=== PATIENT | male | born 1965 | race Caucasian/White ===

== ENCOUNTER → 2020-11-21 09:03 | Outpatient (BNVA) | payer OTHER, SELFPAY | PROVIDERS: Family Provider Nurse Practitioner Family; PCP Nurse Practitioner Family; Visit Provider Nurse Practitioner Family | DX: I10 Essential (primary) hypertension (principal); Z68.27 Body mass index [BMI] 27.0-27.9, adult | CPT/HCPCS: 80053; 80061; 84439; 84443 ==

== ENCOUNTER → 2021-04-11 11:19 | Outpatient (BNVA) | payer OTHER, SELFPAY | PROVIDERS: Family Provider Nurse Practitioner Family; PCP Nurse Practitioner Family; Visit Provider Family Medicine | DX: S50.11XA Contusion of right forearm, initial encounter (principal); M72.0 Palmar fascial fibromatosis [Dupuytren]; X58.XXXA Exposure to other specified factors, initial encounter | CPT/HCPCS: 73090 ==

== ENCOUNTER 2022-04-22 05:57 | Day surgery (SDC) | payer OTHER, SELFPAY ==
[2022-04-18 11:19] VITALS: BMI 27.3
[2022-04-22 06:24] VITALS: BP 137/99; PULSE 87; RESP 18; TEMP 36.4; O2SAT 95
[2022-04-22] MEDS: sodium chloride 0.9% 1,000 ML 30 ML IV (06:35)
--- NOTE | 2022-04-22 07:00 | ANES.PREANE2 ---
Documented by User: Susanne Colmenares CRNA 04/22/22 07:01 Pre-Anesthetic Assessment Height/Weight: Height 1.73 m Weight 81.647 kg Temp Pulse Resp BP Pulse Ox 97.5 F L 87 18 137/99 95 04/22/22 06:24 04/22/22 06:24 04/22/22 06:24 04/22/22 06:24 04/22/22 06:24 Preop Diagnosis: Screen Operation Date: 04/22/22 07:15 Proposed Procedures p Colonoscopy 60901,Z12.11(Not Applicable) - Janes Mcdowell MD Familial anesthetic complications: none Was Beta Nadya taken within 24 hours: N/A Was Clonidine taken within 24 hours: N/A Last intake: Intake Last Liquid Date 04/21/22 Last Liquid Time 22:00 Last Solid Date 04/20/22 Last Solid Time 00:00 Last Intake: 00:00 Social Alcohol (weekend) and Tobacco (chewing tobacco) Exam alert and oriented x 3 Airway Submandibular: within normal limits Cervical ROM: within normal limits Mallampati: Class II Dentition: full History/ROS No significant history except as noted CV/HEM Hypertension None reported Hepatic None reported GI None reported Metabolic None reported Musc/skel None reported Neuropsych None reported Anesthetic Plan ASA status: 2 Anesthesia: Anesthesia Evaluation and MAC Risk of > 500 ml blood loss (7ml/kg in children): No Medications/Allergies Home Medications Medication Instructions Recorded Confirmed Last Taken Type ascorbic acid (vitamin C) 1,000 mg 1,000 mg PO BID tab 11/02/19 04/22/22 04/20/22 History tablet lysine 1,000 mg tablet 2,000 mg PO QDAY tab 11/02/19 04/22/22 04/20/22 History varicella-zoster glycoE [id number] 0.5 ml IM ONCE #1 ea 03/26/22 03/26/22 Unknown Rx adj(PF) 50 mcg/0.5 mL IM susp, kit (Shingrix (PF)) amlodipine 10 mg tablet 10 mg PO DAILY 04/19/22 04/22/22 04/21/22 History Allergies Allergy/AdvReac Type Severity Reaction Status Date / Time No Known Allergies Allergy Verified 03/26/22 13:10 Current Medications Generic Name Dose Route Start Last Admin Trade Name Freq PRN Reason Stop Dose Admin Sodium Chloride 1,000 mls @ 30 mls/hr 04/22/22 06:30 04/22/22 06:35 Sodium Chloride 0.9% IV 30 mls/hr .Q24H DONTE Administration PFSH Anesthesia Medical History (Updated 03/26/22 @ 13:40 by Janes Mcdowell MD) Essential hypertension Social History (Updated 03/26/22 @ 13:15 by Deb Viera) Smoking and tobacco status: current every day smoker smokeless tobacco Smokeless tobacco user: chewing tobacco Smokeless tobacco details: 1 can a day Alcohol intake: current Alcohol intake frequency: holidays/special occasions only Additional social history: Uses chewing tobacco Data Anesthesia Cardiac Studies: No Data to Display
--- NOTE | 2022-04-22 07:14 | W.PM.OPSFHP ---
Same Day Surgery H&P Indication for Procedure/HPI DATE OF PROCEDURE: April 22, 2022 CHIEF COMPLAINT/INDICATIONFOR SURGICAL PROCEDURE: Screening PREOP DIAGNOSIS: Screen PLANNED PROCEDURE: Operation Date: 04/22/22 07:15 Proposed Procedures p Colonoscopy 93332,Z12.11(Not Applicable) - Janes Mcdowell MD Medications/Allergies* Home Medications Medication Instructions Recorded Confirmed Type ascorbic acid (vitamin C) 1,000 mg 1,000 mg PO BID tab 11/02/19 04/22/22 History tablet lysine 1,000 mg tablet 2,000 mg PO QDAY tab 11/02/19 04/22/22 History amlodipine 10 mg tablet 10 mg PO DAILY 04/19/22 04/22/22 History Allergies/Adverse Reactions Allergy/AdvReac Type Severity Reaction Status Date / Time No Known Allergies Allergy Verified 03/26/22 13:10 Current Medications: Generic Name Dose Route Start Last Admin Trade Name Freq PRN Reason Stop Dose Admin Sodium Chloride 1,000 mls @ 30 mls/hr 04/22/22 06:30 04/22/22 06:35 Sodium Chloride 0.9% IV 30 mls/hr .Q24H DONTE Administration Pertinent History/Comorbid Conditions* Medical History (Updated 03/26/22 @ 13:40 by Janes Mcdowell MD) Essential hypertension Social History Smoking and tobacco status: current every day smoker smokeless tobacco Smokeless tobacco user: chewing tobacco Smokeless tobacco details: 1 can a day Alcohol intake: current Alcohol intake frequency: holidays/special occasions only Additional social history: Uses chewing tobacco Pertinent Exam Findings alert, oriented x 3, clear to auscultation bilaterally, regular rate & rhythm, operative site marked and procedure specific exam findings Recommendations Surgery/Procedure today Coding Level of Care Code Acute Tobacco Prizer for Jelly Joy
[2022-04-22 08:04] VITALS: BP 117/80; PULSE 72; RESP 20; TEMP 36.1; O2SAT 95
--- NOTE | 2022-04-22 08:07 | ANE.PACU2 ---
Documented by User: Susanne Colmenares CRNA 04/22/22 08:08 Inpatient post-anesthesia follow up: Airway intact: Yes Vital signs: Temperature 97 F Pulse Rate 72 Respiratory Rate 20 Blood Pressure 117/80 Pulse Oximetry 95 Oxygen Delivery Me thod Room Air Oxygen Flow Rate Fraction of Inspir ed Oxygen Hydration adequate: Yes Nausea and vomiting: No Pain level: 1 Mental status: Baseline
[2022-04-22 08:12] VITALS: BP 123/79; PULSE 67; RESP 20; O2SAT 96
[2022-04-22 08:23] VITALS: BP 109/68; PULSE 65; RESP 18; O2SAT 96
== END 2022-04-22 08:30 | disposition home or self-care (01) ==
PROVIDERS: PCP Nurse Practitioner Family; Visit Provider Internal Medicine
PROC: 0DJD8ZZ Inspection of Lower Intestinal Tract, Via Natural or Artificial Opening Endoscopic (ICD-10-PCS; CPT 45378; principal; 2022-04-22 07:15)
DX: Z12.11 Encounter for screening for malignant neoplasm of colon (principal); I10 Essential (primary) hypertension; F17.220 Nicotine dependence, chewing tobacco, uncomplicated; D12.3 Benign neoplasm of transverse colon; D12.8 Benign neoplasm of rectum
CPT/HCPCS: 45385; 88305; J2704; J7030

== ENCOUNTER → 2022-08-08 08:47 | Outpatient (BNVA) | payer OTHER, SELFPAY | PROVIDERS: PCP Nurse Practitioner Family; Visit Provider Nurse Practitioner Family | DX: I10 Essential (primary) hypertension (principal) | CPT/HCPCS: 80053; 80061; 84443; 85025 ==

== ENCOUNTER → 2022-09-13 08:50 | Outpatient (BNVA) | payer OTHER, SELFPAY | PROVIDERS: PCP Nurse Practitioner Family; Visit Provider Nurse Practitioner Family | DX: I10 Essential (primary) hypertension (principal) | CPT/HCPCS: 80053; 80061 ==

== ENCOUNTER → 2022-11-08 16:08 | Outpatient (BNVA) | payer OTHER, SELFPAY | PROVIDERS: PCP Nurse Practitioner Family; Visit Provider Nurse Practitioner Family | DX: R05.9 Cough, unspecified (principal) | CPT/HCPCS: 71046 ==

== ENCOUNTER 2022-11-29 16:07 | Outpatient (CLI) | payer OTHER, SELFPAY ==
--- NOTE | 2022-11-29 16:30 | CT_ITS ---
WS: [id number] CT CHEST WITH INTRAVENOUS CONTRAST HISTORY: J84.10 - Pulmonary fibrosis, unspecified TECHNIQUE: Contiguous 5 mm axial imaging performed on the thorax. Coronal and sagittal reformats are submitted. All CT scans at [facility] use at least one of these dose optimization techniques: automated exposure control; mA and/or kV adjustment per patient size (includes targeted exams where dose is matched to clinical indication); or iterative reconstruction. CONTRAST: Omnipaque 350; 95 mL IV. DLP: 384.39 mGy.cm COMPARISON: Chest radiograph 11/08/2022 Lungs and central airway: Lungs are well-aerated. No bronchiectasis or honeycombing. Predominantly ca lcified nodule LEFT upper lobe measures 14 x 12 mm. Central calcification. There is an additional LEF T lower lobe 4 mm calcification. Noncalcified 3 mm nodule along the minor fissure. No mass. No pneumo rodrigo. Pleura: Normal. No pleural effusion. Heart and pericardium: Normal size heart with no pericardial effusion. Mediastinum and suze: No mediastinum or hilar adenopathy. Mild asymmetric thickening of the esophagus . At the level of the raiza the esophagus measures up to 8 mm. There is no obstruction. Distal esoph ricardo is also mildly thickened. Vessels: Normal size aortic and pulmonary artery. No coronary artery calcifications. Chest wall and lower neck: No soft tissue masses. Upper abdomen: Negative. Osseous structures: Mild degenerative spondylitic changes in the thoracic spine. CT/CT chest w con* [id number] IMPRESSION: 1. Benign granulomata LEFT upper and LEFT lower lobes. 2. No pulmonary fibrosis. 3. Benign 3 mm intrapulmonary nodule on the RIGHT minor fissure. 4. Mild asymmetric esophageal wall thickening. Correlate with symptoms of esop hagitis. May be related to gastroesophageal reflux.
[2022-11-29] MEDS: iohexol 350 mg/mL 500 mL Btl (per mL) IV (16:33)
== END 2022-11-29 16:08 | disposition home or self-care (01) ==
LOC: RAD 16:07
PROVIDERS: PCP Nurse Practitioner Family; Visit Provider Nurse Practitioner Family
DX: J84.10 Pulmonary fibrosis, unspecified (principal); R91.1 Solitary pulmonary nodule
CPT/HCPCS: 71260; Q9967

== ENCOUNTER → 2024-01-09 09:12 | Outpatient (BNVA) | payer OTHER, SELFPAY | PROVIDERS: PCP Nurse Practitioner Family; Visit Provider Nurse Practitioner Family | DX: I10 Essential (primary) hypertension (principal) | CPT/HCPCS: 80053; 80061 ==

== ENCOUNTER → 2024-12-08 09:00 | Outpatient (BNVA) | payer OTHER, SELFPAY | PROVIDERS: PCP Nurse Practitioner Family; Visit Provider Nurse Practitioner Family | DX: I10 Essential (primary) hypertension (principal); E83.42 Hypomagnesemia | CPT/HCPCS: 80053; 80061; 83735; 85025 ==

== ENCOUNTER → 2025-06-27 09:14 | Outpatient (BNVA) | payer OTHER, SELFPAY | PROVIDERS: PCP Nurse Practitioner Family; Visit Provider Nurse Practitioner Family | DX: E83.42 Hypomagnesemia (principal); I10 Essential (primary) hypertension | CPT/HCPCS: 80053; 80061; 83735 ==